=== PATIENT | female | born 1940 | race Caucasian/White ===

== ENCOUNTER 2016-10-24 14:20 | Inpatient (IN) | payer MEDICARE ==
[~2016-10-24] VITALS: Ht 157.5 cm; Wt 63.3 kg
[2016-10-24 15:00] LABS: BASO % 0.2 % (0.1-1.2); EOS # 0.4 10_X3_uL (0.0-0.4); EOS % 2.8 % (0.7-5.8); GRAN # 9.6 10_X3_uL (1.6-6.1); GRAN % 74.9 % (34.0-71.1); HEMATOCRIT 36.7 % (34-45); LYMPH # 1.3 10_X3_uL (1.2-3.7); MEAN CORPUSCULAR HEMOGLOBIN 34.3 pg (27.0-33.0); MEAN CORPUSCULAR HGB CONC 32.7 g/dL (32.0-36.0); MEAN CORPUSCULAR VOLUME 104.9 fL (79-95); MEAN PLATELET VOLUME 10.1 fl (7.5-11.5); MONO # 1.6 10_X3_uL (0.2-0.9); MONO % 12.1 % (4.7-12.5); PLATELET COUNT 237 x10_3/uL (182-369); RED CELL DISTRIBUTION WIDTH 14.1 % (11.7-14.4); WHITE BLOOD COUNT 12.9 x10_3/uL (4.0-10.0)
[2016-10-24 15:12] LABS: ALBUMIN 3.5 gm/dL (3.4-5.0); BILIRUBIN,TOTAL 0.33 mg/dL (0.0-1.0); CREATININE 1.3 mg/dL (0.6-1.3); POTASSIUM 4.3 mmol/L (3.5-5.1); TOTAL PROTEIN 7.2 gm/dL (6.4-8.2)
[2016-10-24 15:32] LABS: ARTERIAL BLD GAS O2 SATURATION 97.7 % (94-98); ARTERIAL BLOOD GAS BASE EXCESS 3.3 mmol/L (-2.0-3.0); ARTERIAL BLOOD GAS HCO3 29.2 mmol/L (22-26); ARTERIAL BLOOD GAS PCO2 51.8 mmHg (32-45); ARTERIAL BLOOD GAS pH 7.37 (7.35-7.45)
[2016-10-24 21:18] LABS: URINE BILIRUBIN NEGATIVE (NEGATIVE); URINE BLOOD TRACE (NEGATIVE); URINE GLUCOSE (UA) NORMAL (NORMAL); URINE KETONE TRACE (NEGATIVE); URINE LEUKOCYTE ESTERASE TRACE (NEGATIVE); URINE NITRATE NEGATIVE (NEGATIVE); URINE PROTEIN TRACE (NEGATIVE); UROBILINOGEN NORMAL mg/dL (<1.0)
[2016-10-24 21:46] LABS: URINE RBC 0-5 /[HPF] (0-2); URINE SQUAMOUS EPITHELIAL CELL 15-20 /[HPF] (NONE SEEN); URINE WBC 0-5 /[HPF] (0-5)
[2016-10-25 06:40] LABS: BASO % 0.1 % (0.1-1.2); HEMATOCRIT 35.2 % (34-45); HEMOGLOBIN 11.3 g/dL (11.2-15.7); LYMPH # 1.1 10_X3_uL (1.2-3.7); LYMPH % 10.4 % (19.3-51.7); MEAN CORPUSCULAR HEMOGLOBIN 33.6 pg (27.0-33.0); MEAN CORPUSCULAR HGB CONC 32.1 g/dL (32.0-36.0); MEAN CORPUSCULAR VOLUME 104.8 fL (79-95); MEAN PLATELET VOLUME 10.1 fl (7.5-11.5); MONO # 0.3 10_X3_uL (0.2-0.9); MONO % 2.5 % (4.7-12.5); PLATELET COUNT 237 x10_3/uL (182-369); RED BLOOD COUNT 3.36 x10_6/uL (3.9-5.2); RED CELL DISTRIBUTION WIDTH 13.7 % (11.7-14.4); WHITE BLOOD COUNT 10.4 x10_3/uL (4.0-10.0)
[2016-10-25 06:50] LABS: CREATININE 1.1 mg/dL (0.6-1.3); POTASSIUM 4.7 mmol/L (3.5-5.1)
[2016-10-26 06:59] LABS: HEMATOCRIT 33.5 % (34-45); MEAN CORPUSCULAR HEMOGLOBIN 34.5 pg (27.0-33.0); MEAN CORPUSCULAR HGB CONC 32.8 g/dL (32.0-36.0); MEAN PLATELET VOLUME 9.9 fl (7.5-11.5); RED BLOOD COUNT 3.19 x10_6/uL (3.9-5.2); RED CELL DISTRIBUTION WIDTH 13.8 % (11.7-14.4); WHITE BLOOD COUNT 17.4 x10_3/uL (4.0-10.0)
[2016-10-26 07:12] LABS: CALCIUM 8.7 mg/dL (8.7-10.7); CREATININE 1.1 mg/dL (0.6-1.3); POTASSIUM 4.3 mmol/L (3.5-5.1)
[2016-10-28 06:40] LABS: CALCIUM 9.1 mg/dL (8.7-10.7); CREATININE 1.1 mg/dL (0.6-1.3); POTASSIUM 3.9 mmol/L (3.5-5.1)
[2016-10-28 06:43] LABS: HEMATOCRIT 33.1 % (34-45); HEMOGLOBIN 11.5 g/dL (11.2-15.7); MEAN CORPUSCULAR HEMOGLOBIN 34.2 pg (27.0-33.0); MEAN CORPUSCULAR HGB CONC 34.7 g/dL (32.0-36.0); MEAN CORPUSCULAR VOLUME 98.5 fL (79-95); MEAN PLATELET VOLUME 9.5 fl (7.5-11.5); RED BLOOD COUNT 3.36 x10_6/uL (3.9-5.2); RED CELL DISTRIBUTION WIDTH 13.9 % (11.7-14.4); WHITE BLOOD COUNT 12.8 x10_3/uL (4.0-10.0)
[2016-10-29 06:33] LABS: BASO # 0.1 10_X3_uL (0.0-0.1); BASO % 0.5 % (0.1-1.2); GRAN # 9.4 10_X3_uL (1.6-6.1); GRAN % 83.7 % (34.0-71.1); LYMPH # 1.1 10_X3_uL (1.2-3.7); MEAN CORPUSCULAR HEMOGLOBIN 34.1 pg (27.0-33.0); MEAN CORPUSCULAR HGB CONC 33.3 g/dL (32.0-36.0); MEAN CORPUSCULAR VOLUME 102.3 fL (79-95); MEAN PLATELET VOLUME 10.1 fl (7.5-11.5); MONO # 0.7 10_X3_uL (0.2-0.9); MONO % 5.8 % (4.7-12.5); PLATELET COUNT 265 x10_3/uL (182-369); RED BLOOD COUNT 3.52 x10_6/uL (3.9-5.2); WHITE BLOOD COUNT 11.2 x10_3/uL (4.0-10.0)
[2016-10-29 06:40] LABS: CALCIUM 8.9 mg/dL (8.7-10.7); CREATININE 1.3 mg/dL (0.6-1.3); POTASSIUM 3.9 mmol/L (3.5-5.1)
== END 2016-10-29 12:04 | disposition home or self-care (01) | DRG 190 ==
LOC: ER 14:20 → MS 19:05
PROVIDERS: Emergency Medicine; ADMIT Family Medicine
DX: J44.0 Chronic obstructive pulmonary disease with (acute) lower respiratory infection (principal); J18.9 Pneumonia, unspecified organism; J44.1 Chronic obstructive pulmonary disease with (acute) exacerbation; R91.1 Solitary pulmonary nodule; M79.662 Pain in left lower leg; I10 Essential (primary) hypertension; Z79.82 Long term (current) use of aspirin; Z79.899 Other long term (current) drug therapy; Z88.1 Allergy status to other antibiotic agents; Z88.5 Allergy status to narcotic agent; Z99.81 Dependence on supplemental oxygen; Z87.891 Personal history of nicotine dependence
CPT/HCPCS: 36415; 36600; 71010; 71020; 71250; 80048; 80053; 81001; 82550; 82553; 82803; 83605; 83880; 85025; 86738; 87040; 87070; 87086; 87205; 87449; 93005; 93971; 94640; 94664; 96365; 96367; 96375; 99070; 99284; 99285-25; J2930; J7050

== ENCOUNTER 2016-10-24 14:20 | Emergency (ER) | payer MEDICARE | END 2016-10-24 19:05 | disposition other institution (70) | LOC: ER 14:20 | DX: J44.0 Chronic obstructive pulmonary disease with (acute) lower respiratory infection (principal); J18.9 Pneumonia, unspecified organism; I10 Essential (primary) hypertension; Z90.710 Acquired absence of both cervix and uterus; Z88.1 Allergy status to other antibiotic agents; Z88.5 Allergy status to narcotic agent; Z88.8 Allergy status to other drugs, medicaments and biological substances; Z79.82 Long term (current) use of aspirin; Z79.899 Other long term (current) drug therapy | CPT/HCPCS: 99284; 99285-25 ==